=== PATIENT | male | born 2000 | race African-American/Black ===

== ENCOUNTER 2024-06-15 10:08 | Emergency (ER) | payer OTHER ==
[~2024-06-15] VITALS: Ht 172.7 cm; Wt 92.5 kg
[2024-06-15] MEDS ORDERED: IBUP80TA PO (12:20)
[2024-06-15 12:30] VITALS: BP 137/72; TEMP 98.3; O2SAT 100
== END 2024-06-15 12:37 | disposition home or self-care (01) ==
LOC: M ED 10:08
DX: R07.82 Intercostal pain (principal); Z79.1 Long term (current) use of non-steroidal anti-inflammatories (NSAID)

== ENCOUNTER 2024-07-04 07:36 | Emergency (ER) | payer OTHER ==
[~2024-07-04] VITALS: Ht 172.7 cm; Wt 94.2 kg
[~2024-07-04 07:36] MED LIST: IBUP80TA PO
[2024-07-04 10:18] LABS: GC DNA AMPLIFICATION NEGATIVE (NEGATIVE)
[2024-07-04 10:38] VITALS: BP 124/77; TEMP 98.1; O2SAT 100
== END 2024-07-04 10:41 | disposition home or self-care (01) ==
LOC: M ED 07:36
DX: N50.812 Left testicular pain (principal); Z79.1 Long term (current) use of non-steroidal anti-inflammatories (NSAID)

== ENCOUNTER 2024-08-28 20:52 | Emergency (ER) | payer OTHER ==
[~2024-08-28] VITALS: Ht 172.7 cm; Wt 96.5 kg
[2024-08-29] MEDS: methocarbamoL 500 MG TAB PO ONE (00:48)
[2024-08-29] MEDS: KETOROLAC 30 MG/ML 1ML VIAL IM ONE (00:49)
[2024-08-29] MEDS ORDERED: METH-1165 PO (02:22)
[2024-08-29] MEDS ORDERED: NAPR-837 PO (02:22)
[2024-08-29 02:23] VITALS: BP 117/76; TEMP 96.9; O2SAT 100
== END 2024-08-29 02:30 | disposition home or self-care (01) ==
LOC: M ED 20:52
DX: M54.17 Radiculopathy, lumbosacral region (principal); M51.370 Other intervertebral disc degeneration, lumbosacral region with discogenic back pain only; Z79.899 Other long term (current) drug therapy; Z79.1 Long term (current) use of non-steroidal anti-inflammatories (NSAID)
CPT/HCPCS: 72110; 96372; 99283; J1885

== ENCOUNTER 2024-11-18 16:02 | Emergency (ER) | payer OTHER ==
[~2024-11-18] VITALS: Ht 172.7 cm; Wt 99.2 kg
[~2024-11-18 16:02] MED LIST changes: +METH-1165 PO; +NAPR-837 PO
[2024-11-18 17:20] VITALS: BP 124/76; TEMP 97.9; O2SAT 100
== END 2024-11-18 18:46 | disposition home or self-care (01) ==
LOC: M ED 16:02
DX: S93.501A Unspecified sprain of right great toe, initial encounter (principal); X50.0XXA Overexertion from strenuous movement or load, initial encounter; M54.50 Low back pain, unspecified; Y92.009 Unspecified place in unspecified non-institutional (private) residence as the place of occurrence of the external cause; Y93.89 Activity, other specified; Y99.9 Unspecified external cause status; Z79.899 Other long term (current) drug therapy; Z79.1 Long term (current) use of non-steroidal anti-inflammatories (NSAID)

== ENCOUNTER 2025-01-14 21:53 | Emergency (ER) | payer OTHER ==
[~2025-01-14] VITALS: Ht 172.7 cm; Wt 100.0 kg
[2025-01-15 04:37] VITALS: BP 138/84; TEMP 97.7; O2SAT 99
[2025-01-15] MEDS: KETOROLAC 30 MG/ML 1ML VIAL IV ONE (04:40)
[2025-01-15] MEDS ORDERED: IBUP-1022 PO (05:05)
== END 2025-01-15 05:16 | disposition home or self-care (01) ==
LOC: M ED 21:53
DX: S86.111A Strain of other muscle(s) and tendon(s) of posterior muscle group at lower leg level, right leg, initial encounter (principal); M79.661 Pain in right lower leg; X50.0XXA Overexertion from strenuous movement or load, initial encounter; Z79.1 Long term (current) use of non-steroidal anti-inflammatories (NSAID); Y92.89 Other specified places as the place of occurrence of the external cause; Y93.89 Activity, other specified; Y99.9 Unspecified external cause status
CPT/HCPCS: 93971; 96374; 99284; J1885

== ENCOUNTER 2025-03-11 01:30 | Emergency (ER) | payer OTHER ==
[~2025-03-11] VITALS: Ht 172.7 cm; Wt 96.0 kg
[~2025-03-11 01:30] MED LIST changes: +IBUP-1022 PO
[2025-03-11] MEDS ORDERED: diphenhydrAMINE 50MG/ML VIAL IM ONE (01:40)
[2025-03-11] MEDS ORDERED: LORazepam 2 MG/ML 1ML VIAL IM ONE (01:40)
[2025-03-11] MEDS ORDERED: HALOPERIDOL LACTATE 5MG/ML VIAL IM ONE (01:40)
[2025-03-11 02:57] LABS: HEMATOCRIT 47.4 % (42.0-52.0); HEMOGLOBIN 15.8 g/dl (13.5-17.5); MEAN CORPUSCULAR HEMOGLOBIN 28.5 pg (27.0-33.0); MEAN CORPUSCULAR HGB CONC 33.3 g/dl (32.0-36.5); MEAN CORPUSCULAR VOLUME 85.4 fl (80.0-96.0); PLATELET COUNT, AUTOMATED 254 10^3/uL (150-450); RED BLOOD COUNT 5.55 10^6/uL (4.30-6.10)
[2025-03-11 03:17] LABS: AMPHETAMINES LEVEL URINE NEGATIVE (NEGATIVE); BARBITURATES URINE NEGATIVE (NEGATIVE); BENZODIAZEPINES URINE NEGATIVE (NEGATIVE); CANNABINOIDS URINE NEGATIVE (NEGATIVE); COCAINE METABOLITE URINE NEGATIVE (NEGATIVE); METHADONE URINE NEGATIVE (NEGATIVE); OPIATES URINE NEGATIVE (NEGATIVE); PHENCYCLIDINE URINE NEGATIVE (NEGATIVE)
[2025-03-11 03:29] LABS: ETHYL ALCOHOL (ETHANOL) < 0.003 % (0.000-0.010)
[2025-03-11 03:31] LABS: ALBUMIN 4.4 G/DL (3.2-5.2); ALKALINE PHOSPHATASE 87 U/L (40-129); ALT/SGPT 34 U/L (7.0-40); AST/SGOT 18 U/L (<34); BILIRUBIN,DIRECT < 0.1 MG/DL (<0.4); BILIRUBIN,TOTAL 0.3 MG/DL (0.3-1.2); BLOOD UREA NITROGEN 15 MG/DL (9-23); CALCIUM LEVEL 9.7 MG/DL (8.5-10.1); CARBON DIOXIDE LEVEL 24 MMOL/L (20-31); CHLORIDE LEVEL 105 MMOL/L (98-107); CREATININE FOR GFR 0.92 MG/DL (0.70-1.30); GLOMERULAR FILTRATION RATE > 90.0 (>60); GLUCOSE, FASTING 105 MG/DL (60-100); POTASSIUM SERUM 4.4 MMOL/L (3.5-5.1); SALICYLATE LEVEL < 3.0 MG/DL (<30); SODIUM LEVEL 141 MMOL/L (136-145); TOTAL PROTEIN 7.8 G/DL (5.7-8.2)
[2025-03-11 03:33] LABS: THYROID STIMULATING HORMONE 1.888 uIU/ML (0.55-4.78)
[2025-03-11 04:41] VITALS: BP 119/72; TEMP 98; O2SAT 99
== END 2025-03-11 05:06 | disposition home or self-care (01) ==
LOC: M ED 01:30
DX: F43.0 Acute stress reaction (principal); Z79.1 Long term (current) use of non-steroidal anti-inflammatories (NSAID)